=== PATIENT | male | born 1950 | race Caucasian/White ===

== ENCOUNTER 2016-06-18 05:58 | Day surgery (SDC) | payer MEDICARE ==
[2016-06-15 13:14] VITALS: BP 112/88
[2016-06-15 13:50] LABS: ASPARTATE AMINO TRANSFERASE 29 U/L (15-37); BLOOD UREA NITROGEN 14 mg/dL (7-18)
[~2016-06-18] VITALS: Ht 177.8 cm; Wt 102.0 kg
[~2016-06-18 05:58] MED LIST: ALLO300T PO; ASPI-496 PO; ATOR20TA9 PO; CHOL200024 PO; METF100010 PO; MULT-717 PO; OMEP-110 PO; PIOG30TA3 PO; VALS1TAB24 PO
[2016-06-18] MEDS ORDERED: LACTATED RINGERS 1,000 ML IV SCH (06:25)
[2016-06-18 06:29] VITALS: BP 112/68
[2016-06-18] MEDS ORDERED: MIDAZOLAM 1 MG/ML, 2ML ONE (07:33)
[2016-06-18] MEDS ORDERED: FENTANYL PF 250 MCG/5ML ONE (07:33)
[2016-06-18] MEDS ORDERED: LIDOCAINE 1%-EPI 1:100K, 50ML ONE ×2 (07:38→07:39)
[2016-06-18] MEDS ORDERED: SUCCINYLCHOLINE 20 MG/ML, 10ML ONE (08:10)
[2016-06-18] MEDS ORDERED: CEFAZOLIN 1,000 MG ONE (08:10)
[2016-06-18] MEDS ORDERED: PROPOFOL 10 MG/ML, 20ML ONE (08:10)
[2016-06-18] MEDS ORDERED: ONDANSETRON 2MG/ML, 2ML ONE (08:10)
[2016-06-18] MEDS ORDERED: GLYCOPYRROLATE 0.2MG/1ML ONE (08:10)
[2016-06-18] MEDS ORDERED: NEOSTIGMINE 1 MG/ML, 10ML ONE (08:10)
[2016-06-18] MEDS ORDERED: ROCURONIUM 10 MG/ML ONE (08:10)
[2016-06-18] MEDS ORDERED: INDOCYANINE GREEN 25 MG VIAL ONE (08:27)
[2016-06-18] MEDS ORDERED: FLUORESCEIN SODIUM 500 MG/5 ML ONE (08:27)
[2016-06-18] MEDS ORDERED: OXYcodone 5 MG/5 ML ORAL.SOL UDC PO PRN (08:30)
[2016-06-18] MEDS ORDERED: ACETAMINOPHEN 325 MG TABLET PO PRN (08:30)
[2016-06-18] MEDS ORDERED: EPHEDRINE 50 MG/ML, 1ML IVPush PRN (08:30)
[2016-06-18] MEDS ORDERED: FENTANYL PF 100 MCG/2ML IV PRN (08:30)
[2016-06-18] MEDS ORDERED: HYDROmorphone 1 MG/ML, 1ML IV PRN (08:30)
[2016-06-18] MEDS ORDERED: hydrALAzine 20 MG/ML, 1ML IV PRN (08:30)
[2016-06-18] MEDS ORDERED: MIDAZOLAM 1 MG/ML, 2ML IV PRN (08:30)
[2016-06-18] MEDS ORDERED: MEPERIDINE/PF 25MG/0.5ML IVPush PRN (08:30)
[2016-06-18] MEDS ORDERED: LABETALOL 5MG/ML, 20ML IV PRN (08:30)
[2016-06-18] MEDS ORDERED: HYDROcodone/APAP 7.5-325MG/15ML UDC PO PRN (08:30)
[2016-06-18] MEDS ORDERED: PROMETHAZINE 25 MG/ML, 1ML IV PRN (08:30)
[2016-06-18] MEDS ORDERED: ONDANSETRON 2MG/ML, 2ML IVPush PRN (08:30)
[2016-06-18] MEDS ORDERED: HYDROcodone/APAP 7.5-325MG/15ML UDC ONE (10:01)
== END 2016-06-18 13:00 | disposition home or self-care (01) ==
LOC: OUT 05:58 → EDSTATUS 08:00 → OUT 13:00
PROVIDERS: ATTEND Otolaryngology
DX: H90.71 Mixed conductive and sensorineural hearing loss, unilateral, right ear, with unrestricted hearing on the contralateral side (principal); I10 Essential (primary) hypertension; E11.9 Type 2 diabetes mellitus without complications; Z82.49 Family history of ischemic heart disease and other diseases of the circulatory system; Z72.89 Other problems related to lifestyle; H93.8X1 Other specified disorders of right ear; E78.5 Hyperlipidemia, unspecified
CPT/HCPCS: 36415; 69714; 80053; 82962; 93005; J0330; J0690; J2250; J2405; J2704; J2710; J3010; J7120; L8690; J3490